=== PATIENT | female | born 1970 | race Caucasian/White ===

== ENCOUNTER → 2017-05-17 | Outpatient (CLI) | payer OTHER ==
[2017-05-17 13:20] LABS: BASO % 0.2 %; BASO ABS # 0.02 K/uL (0-0.2); COMPLETE YES; EOS % 3.3 %; HEMATOCRIT 40.5 % (37-47); IG% 0.2 %; LYMPH % 37.8 %; MEAN CELL VOLUME 83.5 fL (80-100); MEAN CORPUSCULAR HEMOGLOBIN 29.1 pg (25-34); MEAN CORPUSCULAR HGB CONC 34.8 g/dl (32-36); MEAN PLATELET VOLUME 11.9 fL (7.4-10.4); MONO % 4.4 %; NEUT % 54.1 %; PLATELET COUNT 312 K/uL (130-400); RED BLOOD COUNT 4.85 M/uL (4.2-5.4); WHITE BLOOD COUNT 8.99 K/uL (4.8-10.8)
[2017-05-17 13:55] LABS: ALB/GLOB RATIO 0.9 (0.9-2); ALKALINE PHOSPHATASE 117 U/L (45-117); ALT/SGPT 45 U/L (12-78); AST/SGOT 27 U/L (15-37); BLOOD UREA NITROGEN 10 mg/dl (7-18); BUN/CREATININE RATIO 13.3 (10-20); CALCIUM 8.1 mg/dl (8.5-10.1); CARBON DIOXIDE 24 mmol/L (21-32); CHLORIDE 107 mmol/L (98-107); CREATININE 0.72 mg/dl (0.60-1.20); GLUCOSE 190 mg/dl (70-99); HDL CHOLESTEROL 36 mg/dl; POTASSIUM 3.9 mmol/L (3.5-5.1); SODIUM 139 mmol/L (136-145)
[2017-05-17 14:06] LABS: CHOLESTEROL 141 mg/dl (0-200); CHOLESTEROL/HDL RATIO 3.9; LDL CHOLESTEROL CALCULATED 88 mg/dl; TRIGLYCERIDES 86 mg/dl (0-150); VERY LOW DENSITY LIPOPROT CALC 17 mg/dl
== END | disposition home or self-care (01) ==
LOC: C.LAB1850 11:06
PROVIDERS: ATTEND Physician Assistant
DX: I10 Essential (primary) hypertension (principal)

== ENCOUNTER → 2017-05-23 | Outpatient (CLI) | payer OTHER | END | disposition home or self-care (01) | LOC: C.PAPS 17:50 | PROVIDERS: ATTEND Physician Assistant | DX: Z01.411 Encounter for gynecological examination (general) (routine) with abnormal findings (principal) ==

== ENCOUNTER → 2017-05-23 | Outpatient (CLI) | payer OTHER | END | disposition home or self-care (01) | LOC: C.LABSPEC 17:25 | PROVIDERS: ATTEND Physician Assistant | DX: L29.8 Other pruritus (principal) ==

== ENCOUNTER → 2017-05-24 | Outpatient (CLI) | payer OTHER ==
[2017-05-25 06:47] LABS: ESTIMATED AVERAGE GLUCOSE 203 mg/dl; HA1C FLAG Normal (Normal)
== END | disposition home or self-care (01) ==
LOC: C.LAB1850 14:45
PROVIDERS: ATTEND Physician Assistant
DX: R73.9 Hyperglycemia, unspecified (principal)

== ENCOUNTER → 2017-05-29 | Outpatient (CLI) | payer OTHER | END | disposition home or self-care (01) | LOC: C.LAB1850 08:37 | PROVIDERS: ATTEND Obstetrics & Gynecology | DX: N83.9 Noninflammatory disorder of ovary, fallopian tube and broad ligament, unspecified (principal) ==

== ENCOUNTER 2017-08-09 08:55 | Day surgery (SDC) | payer OTHER ==
[2017-07-24 15:05] VITALS: Ht 172.7 cm; Wt 119.6 kg
--- NOTE | 2017-07-24 15:33 | PAT Medication Instructions ---
Service Date Jul 24, 2017. Current Home Medication List Escitalopram (Lexapro), 10 MG PO QAM Hydrochlorothiazide (Hydrochlorothiazide), 1 TAB PO QAM Liraglutide (Victoza), 1.2 MG SQ QPM Valsartan (Diovan), 160 MG PO QAM Medication Instructions For Your Scheduled Surgery - Hold the following medications the morning of surgery: Valsartan (Diovan), 160 MG PO QAM Hydrochlorothiazide (Hydrochlorothiazide), 1 TAB PO QAM - Take the following medications the morning of surgery with a sip of water: Escitalopram (Lexapro), 10 MG PO QAM - Take the following medications as scheduled the night before surgery: Liraglutide (Victoza), 1.2 MG SQ QPM If you have any questions please call us at [phone] or [phone] or [phone]
[2017-07-24 16:11] LABS: BASO % 0.4 %; BASO ABS # 0.05 K/uL (0-0.2); EOS % 2.1 %; EOS ABS # 0.24 K/uL (0-0.5); HEMATOCRIT 40.2 % (37-47); IG# 0.02 K/uL (0.00-0.02); LYMPH % 40.6 %; LYMPH ABS # 4.66 K/uL (1.2-3.4); MEAN CELL VOLUME 84.5 fL (80-100); MEAN CORPUSCULAR HEMOGLOBIN 29.4 pg (25-34); MEAN CORPUSCULAR HGB CONC 34.8 g/dl (32-36); MONO % 4.3 %; MONO ABS # 0.49 K/uL (0.11-0.59); NEUT % 52.4 %; NEUT ABS # 6.01 K/uL (1.4-6.5); PLATELET COUNT 368 K/uL (130-400); RED CELL DISTRIBUTION WIDTH CV 13.5 % (11.5-14.5); RED CELL DISTRIBUTION WIDTH SD 41.5 fL (36.4-46.3); WHITE BLOOD COUNT 11.47 K/uL (4.8-10.8)
[2017-07-24 16:21] LABS: CALCIUM 8.7 mg/dl (8.5-10.1); CREATININE 0.81 mg/dl (0.60-1.20); POTASSIUM 3.9 mmol/L (3.5-5.1)
[~2017-08-09] VITALS: Ht 172.7 cm; Wt 119.6 kg
[~2017-08-09 08:55] MED LIST: DVN/160 PO; ESCI10TA17 PO; HYDR12.55 PO; LACTATED RINGER'S 1000ML 1,000 ML IV SCH; LIRA18IN SQ
[2017-08-09 09:31] VITALS: BP 144/97; PULSE 82; TEMP 36.8; O2SAT 96
[2017-08-09] MEDS ORDERED: LIDOCAINE HCL 2% 2 ML VIAL (20MG/ML) ONE (09:47)
[2017-08-09] MEDS ORDERED: GLYCOPYRROLATE INJ 0.2 MG/ML VIAL ONE ×2 (09:47→12:16)
[2017-08-09] MEDS ORDERED: PROPOFOL IV EMULSION 10 MG/ML 20 ML VIAL IV ONE (09:47)
[2017-08-09] MEDS ORDERED: DEXAMETHASONE SOD INJ 4 MG/ML VIAL ONE (09:47)
[2017-08-09] MEDS ORDERED: ONDANSETRON INJ 2 MG/ML 2 ML VIAL ONE ×2 (09:47→12:27)
[2017-08-09] MEDS ORDERED: NEOSTIGMINE METHYLSULFATE 5 MG/5 ML SYR ONE (09:47)
[2017-08-09] MEDS ORDERED: FENTANYL CITRATE INJ 50 MCG/1 ML 2 ML VIAL ONE ×2 (09:48→11:48)
[2017-08-09] MEDS ORDERED: MIDAZOLAM HCL 1 MG/ML 2ML VIAL ONE (09:48)
[2017-08-09 09:54] LABS: BASO % 0.5 %; BASO ABS # 0.04 K/uL (0-0.2); EOS ABS # 0.26 K/uL (0-0.5); HEMOGLOBIN 13.8 g/dL (12.0-16.0); IG# 0.01 K/uL (0.00-0.02); LYMPH % 37.4 %; LYMPH ABS # 3.27 K/uL (1.2-3.4); MEAN CELL VOLUME 84.2 fL (80-100); MEAN CORPUSCULAR HEMOGLOBIN 29.1 pg (25-34); MEAN PLATELET VOLUME 11.6 fL (7.4-10.4); MONO % 5.4 %; MONO ABS # 0.47 K/uL (0.11-0.59); NEUT % 53.6 %; NEUT ABS # 4.69 K/uL (1.4-6.5); PLATELET COUNT 320 K/uL (130-400); RED CELL DISTRIBUTION WIDTH CV 13.2 % (11.5-14.5); RED CELL DISTRIBUTION WIDTH SD 40.4 fL (36.4-46.3); WHITE BLOOD COUNT 8.74 K/uL (4.8-10.8)
[2017-08-09 09:55] LABS: MEAN CORPUSCULAR HGB CONC 34.5 g/dl (32-36)
[2017-08-09] MEDS ORDERED: LARYING-O-JET KIT (LTA) ONE (09:56)
[2017-08-09] MEDS ORDERED: EpHEDrine SULFATE INJ 50 MG/ML AMP IV PRN (10:00)
[2017-08-09] MEDS ORDERED: LABETALOL HCL IV 5 MG/ML 20ML IV PRN (10:00)
[2017-08-09] MEDS ORDERED: NALOXONE HCL 0.4 MG/1 ML VIAL/CARP IV PRN (10:00)
[2017-08-09] MEDS ORDERED: FLUMAZENIL 0.1 MG/1 ML 10 ML VIAL IV PRN (10:00)
[2017-08-09] MEDS ORDERED: HYDROmorphone INJ 1 MG/ML SYR IV PRN (10:00)
[2017-08-09] MEDS ORDERED: ATROPINE SULFATE 0.1 MG/ML 5ML SYR IV PRN (10:00)
[2017-08-09] MEDS ORDERED: ONDANSETRON INJ 2 MG/ML 2 ML VIAL IV PRN ×2 (10:00→13:00)
[2017-08-09] MEDS ORDERED: PROMETHAZINE HCL INJ 12.5 MG in SODIUM CHLORIDE 0.9% 50ML 50 ML IV PRN (10:00)
[2017-08-09] MEDS ORDERED: BUPIVACAINE 0.5 % 5 MG/1 ML MPF 30ML VIAL ONE (10:24)
--- NOTE | 2017-08-09 10:27 | History & Physical Bridge Note ---
H&P Re-Evaluation Bridge Note: I have examined the patient, reviewed the History & Physical and in the interval since the performance of the History & Physical I have noted the following changes of clinical significance: No changes noted
[2017-08-09] MEDS ORDERED: LABETALOL HCL IV 5 MG/ML 20ML IV ONE (12:09)
[2017-08-09] MEDS ORDERED: ROCURONIUM BROMIDE 10 MG/ML 5 ML VIAL IV ONE ×2 (12:27→12:35)
[2017-08-09] MEDS ORDERED: KETOROLAC TROMETHAMINE 30 MG/ML VIAL ONE (12:30)
[2017-08-09] MEDS ORDERED: SODIUM CHLORIDE 0.9% 1000ML 1,000 ML IV SCH (12:46)
--- NOTE | 2017-08-09 12:46 | [facility] Post Operative Brief Note ---
Immediate Operative Summary Operative Date Aug 09, 2017. Pre-Operative Diagnosis Left Ovarian Mass Post-Operative Diagnosis Left Ovarian Mass Procedure(s) Performed Laparoscopic Left Salpingo-Oophorectomy with use of Fang Surgeon Dr. Marinelli Farm Contractor Buyer Surgeon(s) NONE Estimated Blood Loss 10 ml Findings Consistent with Post-Op Diagnosis Left ovarian cyst. Fluids (cc crystalloids) 1500cc Specimens Permanent Specimen A: Left fallopian tube and left ovary Drains None soni removed at end of case, 200ml clear yellow Anesthesia Type General Complication(s) none Disposition Accompanied Pt To Recover: no
[2017-08-09] MEDS ORDERED: OXYC-57 PO (12:57)
[2017-08-09] MEDS ORDERED: IBUPROFEN 600 MG TAB PO PRN (13:00)
[2017-08-09] MEDS ORDERED: OXYCODONE/ACETAMINOPHEN 5-325 TAB PO PRN ×2 (13:00)
[2017-08-09] MEDS ORDERED: PROMETHAZINE HCL INJ 25 MG in SODIUM CHLORIDE 0.9% 50ML 50 ML IV PRN (13:00)
--- NOTE | 2017-08-09 13:02 | Discharge Instructions ---
Discharge Instructions Date of Service Aug 09, 2017. Visit Reason for Visit: Left Ovarian Mass Discharge Discharge Diagnosis / Problem: Left ovarian cyst Discharge Goals Goal(s): Diagnostic testing, Therapeutic intervention Activity Recommendations Activity Limitations: per Instructions/Follow-up section Anesthesia . Post Anesthesia Instructions: If you have had General Anesthesia or IV Sedation: * Do not drive today. * Resume driving when surgeon permits. * Do not make important decisions or sign legal documents today. * Call surgeon for: 1. Temperature elevations greater than 101 degrees F. 2. Uncontrollable pain. 3. Excessive bleeding. 4. Persistent nausea and vomiting. 5. Medication intolerance (nausea, vomiting or rash). * For nausea and vomiting use only clear liquids such as: tea, soda, bouillon until nausea subsides, then gradually increase diet as tolerated. * If you have any concerns or questions, call your surgeon's office. If physician is unavailable and it is an emergency, call 911 or go to the nearest emergency room. . Instructions / Follow-Up Instructions / Follow-Up POST OPERATIVE: BOWEL FUNCTION/MEDICATIONS: 1. Constipation pain and discomfort are the most common complaints 5-7 days after surgery. Points 2-6 address the things that can help. 2. Chewing gum can help stimulate the gut and help improve digestion and motility. 3. Milk of Magnesia 1-2 times per day until return of bowel function. 4. Colace is a stool softener that helps. Taking this 2-3 times per day until bowel function returns to normal is highly recommended. 5. Dulcolax is a laxative that may be used if several days have passed without a bowel movement. Alternatively Miralax may be used daily instead. 6. Drink plenty of fluids as this will also reduce constipation. 7. Narcotic pain medications will be prescribed by your physician. They are safe to use and we encourage you to use them. If you are not allergic, ibuprofen will also be prescribed. Many patients will be able to transition off of the narcotic medications to ibuprofen by postoperative day 3. ACTIVITY RECOMMENDATIONS: 1. Get plenty of rest and listen to your body. If you are tired, take a nap. 2. You may shower, but do not take a tub bath until you see your doctor at the 2 week post operative visit. 3. NO intercourse and nothing in the vagina until you are examined by your doctor at the 2 week visit. 4. The main physical activity in the first week should be walking. By the second week you can slowly increase activity. There are no limits on walking up and down stairs. 5. Do not lift more than 5-10 lbs for 4 weeks. Remember the "one-handed rule", i.e. if you can lift something with only one hand it's likely okay. 6. Minimize vmware architect like vacuuming and exercising for 4 weeks. "Overdoing it" can lead to incisions not healing, pain and vaginal bleeding , so again, listen to your body. 7. Driving can be resumed when you feel able. Do not drive within 24 hours of taking a narcotic medication. EXPECTATIONS: 1. If you experience heavy vaginal bleeding, call the office number day or night [phone]. 2. Bladder discomfort is common after surgery from the catheter. This usually resolves in 1-2 weeks. 3. By the end of the 1st or 2nd week you should be feeling much better. It may take up to 6 weeks for your energy levels to return to normal. 4. Narcotic medications have side effects such as: dizziness, headache, nausea and/or vomiting. If you suspect your pain medication is causing problems, call our office and we may be able to prescribe an alternate medication. 5. The skin incisions are often covered with a liquid bandage. This will gradually peel off over time. CALL THE OFFICE IF YOU HAVE ANY OF THE FOLLOWIN. Temperature of 101 degrees or higher. 2. Severe abdominal or pelvic pain not relieved by pain medication. 3. Persistent nausea or vomiting. 4. Increased pain with urination or difficulty urinating. 5. Bright red bleeding that soaks more than 1 pad per hour. CONTACT PHONE NUMBERS: Main Office: [phone] Surgical Nurse: [phone] extension [phone] Avoid all tobacco products. If you need help to stop smoking, call [place] FREE QUITLINE at . This is a free call. Diet Recommendations Recommended Home Diet: resume previous diet Procedures Procedures Performed: Laparoscopic Left Salpingo-Oophorectomy with use of DaVinci Pending Studies Studies pending at discharge: yes List of pending studies: pathology Medical Emergencies . Who to Call and When: Medical Emergencies: If at any time you feel your situation is an emergency, please call 911 immediately. . Non-Emergent Contact Non-Emergency issues call your: Primary Care Provider, Math [employer] Science Division Chair . . "Provider Documentation" section prepared by Charlene Marinelli. . [place] Drug Monitoring Program Search Results: patient reviewed within database, no issues identified
--- NOTE | 2017-08-09 13:31 | Anesthesiology Progress Note ---
Anesthesia Post Op Note Date & Time Aug 09, 2017 at 13:30 Vital Signs Pain Intensity: 0 Vital Signs Past 12 Hours Date Time Temp Pulse Resp B/P (MAP) Pulse Ox O2 Delivery O2 Flow Rate FiO2 08/09/17 13:25 69 18 118/69 94 Nasal Cannula 2 08/09/17 13:15 75 18 133/80 97 Oxymask 15 08/09/17 13:05 76 18 137/89 95 Oxymask 15 08/09/17 12:58 36.6 82 16 151/91 95 Oxymask 15 08/09/17 09:31 36.8 82 20 144/97 (113) 96 Room Air Notes Mental Status: alert / awake / arousable, participated in evaluation Pt Amnestic to Procedure: Yes Nausea / Vomiting: adequately controlled Pain: adequately controlled Airway Patency, RR, SpO2: stable & adequate BP & HR: stable & adequate Hydration State: stable & adequate Anesthetic Complications: no major complications apparent
[2017-08-09 13:42] VITALS: BP 122/66; PULSE 68; TEMP 36.6; O2SAT 98
[2017-08-09 14:15] VITALS: BP 115/65; PULSE 66; O2SAT 94
[2017-08-09 14:50] VITALS: BP 115/69; PULSE 73; TEMP 36.6; O2SAT 92
[2017-08-09 15:20] VITALS: BP 119/65; PULSE 82; TEMP 36.8; O2SAT 93
[2017-08-09 15:50] VITALS: BP 114/65; PULSE 80; O2SAT 94
--- NOTE | 2017-08-09 22:18 | OPERATIVE REPORT ---
DATE OF OPERATION: 08/09/2017 PREOPERATIVE DIAGNOSIS: Left ovarian mass. POSTOPERATIVE DIAGNOSIS: Same. PROCEDURES PERFORMED: Laparoscopic left salpingo-oophorectomy with use of da Logan. SURGEON: Charlene Marinelli DO. ELECTRIC CAR OPERATOR: None. ESTIMATED BLOOD LOSS: 10 mL. FINDINGS: Consistent with postoperative diagnosis of left ovarian cyst. FLUIDS: 1500 mL. SPECIMENS: Left fallopian tube and ovary. DRAINS: Luther removed at conclusion of case, 200 mL clear yellow. ANESTHESIA: General. COMPLICATIONS: None. DISPOSITION: Stable and good to recovery room. INDICATIONS FOR PROCEDURE: The patient is a 47-year-old G0 who had undergone pelvic ultrasound for obesity and inability to palpate ovaries on exam by PA in our office, she was found to have a left ovarian cyst that appeared on ultrasound to be a dermoid 4.8 x 3.6 x 4.1 cm. There was also a small uterine fibroid noted. She elected to undergo surgical removal of the dermoid cyst. DESCRIPTION OF PROCEDURE: The patient was seen in the preoperative holding area where risks, benefits, alternatives to surgery were reviewed. She elected to proceed with the case. She had previously signed informed consent in the office under no duress. She was then taken to the operating room where general anesthesia was administered. A timeout was confirmed. She was prepared and draped in the usual sterile fashion with feet in Yellofin stirrups in the dorsal lithotomy position. A weighted speculum was placed in the vagina. The cervix was visualized and its anterior lip was grasped with a single tooth tenaculum and an acorn manipulator was placed. The weighted speculum was removed. A Luther catheter was placed in the bladder. Gloves were changed and attention was then turned to the abdomen where a supraumbilical incision was made with a scalpel and using the open Henna technique, the supraumbilical trocar was placed. The camera was inserted and intraabdominal placement was noted. The abdomen was then insufflated with 15 mmHg of CO2 gas. The patient was placed in steep Trendelenburg position and bilateral instrument port trocar sites on the lateral sides were placed under direct visualization. After the scope was inserted, it was noted that the ovary and IP ligament were short and very close to the left peritoneal wall and therefore the decision was made to use the da Logan robot to achieve better precision with dissection from the peritoneal sidewall. The robot was docked. The left fallopian tube was transected from its mesosalpinx with hot scissors. The left ureter was identified, visualized and away from the field. The left IP ligament was coagulated and transected. The left uteroovarian ligament was coagulated and transected. The ovary was freed from its serosal attachments to the mesosalpinx. Next, the robot was undocked. A 5 mm scope was placed in the lateral port and an EndoCatch bag was placed into the abdomen through the supraumbilical incision site. The fallopian tube and ovary were both placed into the EndoCatch bag. This was brought up to the surface and the incision was extended to remove the bag from the abdominal cavity. The fascial incision was reapproximated with 0 Vicryl in a running stitch. The subcuticular tissue was reapproximated with 0 Vicryl. All incisions were reapproximated using 4-0 Vicryl in a subcuticular stitch. Dermabond was applied. The patient tolerated the procedure well, was taken to the recovery area in stable and good condition. I attest to the content of the Intraoperative Record and any orders documented therein. Any exception s are noted below.
== END 2017-08-09 16:22 | disposition home or self-care (01) ==
LOC: C.ACU 08:55
PROVIDERS: ATTEND Obstetrics & Gynecology
DX: D27.1 Benign neoplasm of left ovary (principal); I10 Essential (primary) hypertension; E11.9 Type 2 diabetes mellitus without complications; K21.9 Gastro-esophageal reflux disease without esophagitis; R59.1 Generalized enlarged lymph nodes; E66.9 Obesity, unspecified; Z68.41 Body mass index [BMI] 40.0-44.9, adult; Z81.8 Family history of other mental and behavioral disorders; Z80.6 Family history of leukemia
CPT/HCPCS: 58661; S2900

== ENCOUNTER → 2017-10-07 | Outpatient (CLI) | payer OTHER ==
[~2017-10-07] MED LIST changes: -LACTATED RINGER'S 1000ML 1,000 ML IV SCH
[2017-10-07 18:22] LABS: ALBUMIN 3.6 gm/dl (3.4-5.0); ALT/SGPT 46 U/L (12-78); BLOOD UREA NITROGEN 11 mg/dl (7-18); CALCIUM 8.4 mg/dl (8.5-10.1); CARBON DIOXIDE 30 mmol/L (21-32); CREATININE 0.77 mg/dl (0.60-1.20); GLUCOSE 119 mg/dl (70-99); POTASSIUM 3.6 mmol/L (3.5-5.1); SODIUM 139 mmol/L (136-145)
[2017-10-07 18:24] LABS: ALKALINE PHOSPHATASE 94 U/L (45-117); AST/SGOT 33 U/L (15-37); TOTAL PROTEIN 7.4 gm/dl (6.4-8.2)
[2017-10-08 07:08] LABS: HEMOGLOBIN A1C 6.5 % (4.5-5.6)
== END | disposition home or self-care (01) ==
LOC: C.LAB1850 17:11
PROVIDERS: ATTEND Internal Medicine
DX: R73.9 Hyperglycemia, unspecified (principal); K20.0 Eosinophilic esophagitis; F41.9 Anxiety disorder, unspecified; I10 Essential (primary) hypertension

== ENCOUNTER → 2017-11-07 | Day surgery (SDC) | payer OTHER ==
[2017-11-04 10:48] VITALS: BMI 40.0
[~2017-11-07] VITALS: Ht 172.7 cm; Wt 120.5 kg
[~2017-11-07] MED LIST changes: +LIDOCAINE HCL 2% 2 ML VIAL (20MG/ML) ONE; +OYST500T47 PO; +PROPOFOL IV EMULSION 10 MG/ML 20 ML VIAL ONE; +SODIUM CHLORIDE 0.9% 500ML 500 ML IV ONE
[2017-11-07 14:48] VITALS: Ht 172.7 cm; Wt 120.5 kg
--- NOTE | 2017-11-07 15:40 | Endo History and Physical ---
History & Physical Date of Service: November 07, 2017. Chief Complaint: REFLUX DYSPHAGIA Referring Physician: DR. TRISTAN History of Present Illness 47 yo CF who presents for EGD secondary to GERD and dysphagia. Past Surgical History Hx Cardiac Surgery: No Hx Internal Defibrillator: No Hx Pacemaker: No Hx Abdominal Surgery: Yes (LEFT OOPHERECTOMY(CYST), COLD CONIZATION BIOPSY) Hx of Implantable Prosthesis: No Hx Post-Op Nausea and Vomiting: No Hx Cancer Surgery: No Hx Thoracic Surgery: No Hx Orthopedic: No Hx Urinary Tract Surgery: No Family History None Social History Smoking Status: Never Smoker Hx Substance Use: No Hx Alcohol Use: Yes (OCCASIONALLY) Allergies Coded Allergies: Nut Tree (Verified Allergy, Unknown, THROAT SWELLING, 11/07/17) Penicillins (Verified Allergy, Unknown, THROAT SWELLING, 11/07/17) Current Medications Reported Home Medications Medications Dose Route/Sig Max Daily Dose Days Date Category Calcium (Oyster Shell) 500 Mg Tab Unknown Dose PO BID 11/04/17 Reported Victoza (Liraglutide) 18 Mg/3 Ml Inj 1.2 Mg SQ QPM 07/24/17 Reported Lexapro (Escitalopram Oxalate) 10 Mg Tab 10 Mg PO QAM 07/24/17 Reported Hydrochlorothiazide 12.5 Mg Tab 1 Tab PO QAM 07/24/17 Reported Diovan (Valsartan) 160 Mg Tab 160 Mg PO QAM 07/24/17 Reported Vital Signs Weight (Kilograms): 120.45 Height (Feet): 5 Height (Inches): 8 Date Time Temp Pulse Resp B/P (MAP) Pulse Ox O2 Delivery O2 Flow Rate FiO2 11/07/17 15:03 37.1 78 20 145/80 (101) 94 Room Air Physical Exam General Appearance: WD/WN, no apparent distress Respiratory/Chest: Auscultation: breath sounds normal Cardiovascular: Heart Auscultation: RRR Abdomen: Bowel Sounds: normal Inspection & Palpation: soft, non-distended, no tenderness, guarding & rebound Assessment and Plan Assessment: 47 yo CF who presents for EGD secondary to GERD and dysphagia. Plan: Proceed with EGD.
--- NOTE | 2017-11-07 16:30 | GI REPORT ---
Patient Name: Kaylynn Juarez Procedure Date: 11/07/2017 4:00 PM Date of : 1970 Admit Type: Outpatient Age: 47 Gender: Female Attending MD: Cedric Marcano DO Procedure: Upper GI endoscopy Providers: Cedric Marcano DO Referring MD: Adriano Napier Indications: Dysphagia Medicines: Monitored Anesthesia Care Complications: No immediate complications. Estimated Blood Loss: Estimated blood loss: none. Procedure: Pre-Anesthesia Assessment: - Prior to the procedure, a History and Physical was performed, and patient medications and allergies were reviewed. The patient's tolerance of previous anesthesia was also reviewed. The risks and benefits of the procedure and the sedation options and risks were discussed with the patient. All questions were answered, and informed consent was obtained. Prior Anticoagulants: The patient has taken no previous anticoagulant or antiplatelet agents. ASA Grade Assessment: II - A patient with mild systemic disease. After reviewing the risks and benefits, the patient was deemed in satisfactory condition to undergo the procedure. After obtaining informed consent, the endoscope was passed under direct vision. Throughout the procedure, the patient's blood pressure, pulse, and oxygen saturations were monitored continuously. The scope was introduced through the mouth, and advanced to the second part of duodenum. The upper GI endoscopy was performed with difficulty due to narrowing. The patient tolerated the procedure well. Findings: Mucosal changes were found in the entire esophagus. Esophageal findings were graded using the Eosinophilic Esophagitis Endoscopic Reference Score (EoE-EREFS) as: Edema Grade 1 Present (decreased clarity or absence of vascular markings), Rings Grade 3 Severe (distinct rings that do not permit passage of diagnostic 8-10 mm endoscope), Exudates Grade 1 Mild (scattered white lesions involving less than 10 percent of the esophageal surface area), Furrows Grade 1 Present (vertical lines with or without visible depth) and Stricture present (9 mm luminal diameter). Biopsies were taken with a cold forceps for histology. A TTS dilator was passed through the scope. Dilation with a 10-11-12 mm balloon dilator was performed to 12 mm. The dilation site was examined and showed moderate improvement in luminal narrowing. The stomach was normal. The examined duodenum was normal. Impression: - Esophageal mucosal changes consistent with eosinophilic esophagitis. Biopsied. Dilated. - Normal stomach. - Normal examined duodenum. Recommendation: - Resume previous diet. - Use Protonix (pantoprazole) 40 mg PO BID. - Repeat upper endoscopy in 3 weeks for retreatment. - Return to GI office as previously scheduled. Cedric Marcano, DO 11/07/2017 4:29:22 PM This report has been signed electronically. Note Initiated On: 11/07/2017 4:00 PM Number of Addenda: 0 I attest to the content of the Intraoperative Record and orders documented therein, exceptions below {[id number]}
--- NOTE | 2017-11-07 16:39 | Discharge Instructions ---
Endoscopy Patient Instructions Date / Procedure(s) Performed November 07, 2017. EGD Allergy Information Coded Allergies: Nut Tree (Verified Allergy, Unknown, THROAT SWELLING, 11/07/17) Penicillins (Verified Allergy, Unknown, THROAT SWELLING, 11/07/17) Discharge Date / Findings November 07, 2017. Eosinophilic esophagitis s/p dilation and biopsies Medication Instructions 1) Start Protonix 40mg by mouth twice daily 1/2 hour prior to breakfast and dinner. 2) OK to resume all medications today as prescribed Reported Home Medications Medications Dose Route/Sig Max Daily Dose Days Date Category Calcium (Oyster Shell) 500 Mg Tab Unknown Dose PO BID 11/04/17 Reported Victoza (Liraglutide) 18 Mg/3 Ml Inj 1.2 Mg SQ QPM 07/24/17 Reported Lexapro (Escitalopram Oxalate) 10 Mg Tab 10 Mg PO QAM 07/24/17 Reported Hydrochlorothiazide 12.5 Mg Tab 1 Tab PO QAM 07/24/17 Reported Diovan (Valsartan) 160 Mg Tab 160 Mg PO QAM 07/24/17 Reported Provider Instructions Activity Restrictions - No exercising or heavy lifting for 24 hours. - Do not drink alcohol the day of the procedure. - Do not drive a car or operate machinery until the day after the procedure. - Do not make any important decisions or sign important papers in 24 hours after the procedure. Following Day: - Return to full activity which may include returning to work/school. Diet Start your diet with liquids and light foods (jello, soup, juice, toast). Then eat your usual diet if not nauseated. Treatment For Common After Affects For mild abdominal pain, bloating, or excessive gas: - Rest - Eat lightly - Lie on right side Repeat EGD in 3 weeks. Follow-Up Information Follow-up with DR. TRISTAN as scheduled Anesthesia Information What You Should Know You have had a procedure that required some medicine to reduce anxiety and discomfort. This treatment is called moderate sedation. After receiving the treatment, you may be sleepy, but you will be able to breathe on your own. The effects of the treatment may last for several hours. Follow these instructions along with Activity/Diet recommendations noted above: * Do NOT do anything where dizziness or clumsiness would be dangerous. * Rest quietly at home today, then you can be up and about tomorrow. * Have a responsible person stay with you the rest of today. * You may have had an I.V. today. If so, you may take the dressing off later today. Recommendations Call your doctor if: * Trouble breathing * Continuous vomiting for more than 24 hours * Temperature above 101 degrees * Severe abdominal pain or bloating * Pain not relieved by pain medicine ordered * There is increased drainage or redness from any incision * A large amount of rectal bleeding greater than 2-3 tablespoons. (If you had a polyp/s removed or have hemorrhoids, a small amount of blood - from the rectum is to be expected.) * You have any unanswered questions or concerns. IN THE EVENT OF A SERIOUS EMERGENCY, GO TO THE NEAREST EMERGENCY ROOM Your discharge instructions were prepared by provider Cedric Marcano. Patient Instructions Signature Page Kaylynn Juarez Patient (or Guardian) Signature/Date: I have read and understand the instructions given to me by my caregivers. Caregiver/RN/Doctor Signature/Date: The above-named patient and/or guardian has received patient instructions on this date. + Original Patient Signature Page (only) stays with chart. Please make copy for patient.
--- NOTE | 2017-11-07 17:01 | Anesthesiology Progress Note ---
Anesthesia Post Op Note Date & Time November 07, 2017 at 17:00 Vital Signs Vital Signs Past 12 Hours Date Time Temp Pulse Resp B/P (MAP) Pulse Ox O2 Delivery O2 Flow Rate FiO2 11/07/17 16:50 72 20 140/89 (106) 97 Room Air 11/07/17 16:35 85 18 137/83 (101) 94 Room Air 11/07/17 15:03 37.1 78 20 145/80 (101) 94 Room Air Notes Mental Status: alert / awake / arousable, participated in evaluation Nausea / Vomiting: adequately controlled Pain: adequately controlled Airway Patency, RR, SpO2: stable & adequate BP & HR: stable & adequate Hydration State: stable & adequate Anesthetic Complications: no major complications apparent
[2017-11-07 17:05] VITALS: BP 146/94; PULSE 76; O2SAT 98
== END | disposition home or self-care (01) ==
LOC: C.GI 14:39
PROVIDERS: ATTEND Internal Medicine
DX: K20.9 Esophagitis, unspecified (principal); Z88.0 Allergy status to penicillin; E66.9 Obesity, unspecified; Z68.41 Body mass index [BMI] 40.0-44.9, adult; Z91.018 Allergy to other foods; Z79.899 Other long term (current) drug therapy; F32.9 Major depressive disorder, single episode, unspecified; F41.9 Anxiety disorder, unspecified

== ENCOUNTER → 2017-11-13 | Outpatient (CLI) | payer OTHER ==
[~2017-11-13] MED LIST changes: -LIDOCAINE HCL 2% 2 ML VIAL (20MG/ML) ONE; -PROPOFOL IV EMULSION 10 MG/ML 20 ML VIAL ONE; -SODIUM CHLORIDE 0.9% 500ML 500 ML IV ONE
--- NOTE | 2017-11-13 15:06 | MAMMOGRAPHY REPORT ---
BILATERAL DIGITAL SCREENING MAMMOGRAM TOMOSYNTHESIS WITH CAD: 11/13/2017 CLINICAL HISTORY: Routine screening. Patient has no complaints. TECHNIQUE: Breast tomosynthesis in addition to standard 2D mammography was performed. Current study was also evaluated with a Computer Aided Detection (CAD) system. COMPARISON: No prior exams were available for comparison. BREAST COMPOSITION: There are scattered areas of fibroglandular density in both breasts. FINDINGS: No suspicious mass, architectural distortion or cluster of microcalcifications is seen. IMPRESSION: ACR BI-RADS CATEGORY 1: NEGATIVE There is no mammographic evidence of malignancy. A 1 year screening mammogram is recommended. The pa tient will receive written notification of the results. Approximately 10% of breast cancers are not detected with mammography. A negative mammographic report should not delay biopsy if a clinically suggestive mass is present. Luz kay/kateryna:11/13/2017 12:48:35 Planning Associate: Nancy LINDSEY(Deborah)(Linda), [facility] letter sent: Normal 1/2 BI-RADS Code: ACR BI-RADS Category 1: Negative
== END | disposition home or self-care (01) ==
LOC: C.MAMM 12:23
PROVIDERS: ATTEND Internal Medicine
DX: Z12.31 Encounter for screening mammogram for malignant neoplasm of breast (principal)

== ENCOUNTER → 2017-11-28 | Day surgery (SDC) | payer OTHER ==
[2017-11-20 12:47] VITALS: BMI 40.0
[~2017-11-28] VITALS: Ht 172.7 cm; Wt 120.5 kg
[~2017-11-28] MED LIST changes: +LIDOCAINE HCL 2% 2 ML VIAL (20MG/ML) ONE; +PANT40TA PO; +PROPOFOL IV EMULSION 10 MG/ML 20 ML VIAL ONE; +SODIUM CHLORIDE 0.9% 500ML 500 ML IV ONE
[2017-11-28 12:16] VITALS: Ht 172.7 cm; Wt 120.5 kg
--- NOTE | 2017-11-28 12:36 | Endo History and Physical ---
History & Physical Date of Service: November 28, 2017. Chief Complaint: EOSINOPHILIC ESOPHAGITIS Referring Physician: DR. TRISTAN History of Present Illness 47 yo CF who presents for EGD secondary to Eosinophilic esophagitis. Past Surgical History Hx Cardiac Surgery: No Hx Internal Defibrillator: No Hx Pacemaker: No Hx Abdominal Surgery: Yes (LEFT OOPHERECTOMY(CYST)) Hx Post-Op Nausea and Vomiting: No Hx Cancer Surgery: No Hx Thoracic Surgery: No Hx Orthopedic: No Hx Urinary Tract Surgery: No Family History None Social History Smoking Status: Never Smoker Hx Substance Use: No Hx Alcohol Use: Yes (OCCASIONALLY) Allergies Coded Allergies: Nut Tree (Verified Allergy, Unknown, THROAT SWELLING, 11/20/17) Penicillins (Verified Allergy, Unknown, THROAT SWELLING, 11/20/17) Current Medications Reported Home Medications Medications Dose Route/Sig Max Daily Dose Days Date Category Protonix (Pantoprazole Sodium) 40 Mg Tab 40 Mg PO BID 11/20/17 Reported Calcium (Oyster Shell) 500 Mg Tab Unknown Dose PO BID 11/04/17 Reported Victoza (Liraglutide) 18 Mg/3 Ml Inj 1.2 Mg SQ QPM 07/24/17 Reported Lexapro (Escitalopram Oxalate) 10 Mg Tab 10 Mg PO QAM 07/24/17 Reported Hydrochlorothiazide 12.5 Mg Tab 1 Tab PO QAM 07/24/17 Reported Diovan (Valsartan) 160 Mg Tab 160 Mg PO QAM 07/24/17 Reported Vital Signs Weight (Kilograms): 120.45 Height (Feet): 5 Height (Inches): 8 Date Time Temp Pulse Resp B/P (MAP) Pulse Ox O2 Delivery O2 Flow Rate FiO2 11/28/17 12:15 36.6 73 20 152/114 (127) 97 Room Air Physical Exam General Appearance: WD/WN, no apparent distress Respiratory/Chest: Auscultation: breath sounds normal Cardiovascular: Heart Auscultation: RRR Abdomen: Bowel Sounds: normal Inspection & Palpation: soft, non-distended, no tenderness, guarding & rebound Assessment and Plan Assessment: 47 yo CF who presents for EGD secondary to Eosinophilic esophagitis. Plan: Proceed with EGD.
--- NOTE | 2017-11-28 13:08 | Discharge Instructions ---
Endoscopy Patient Instructions Date / Procedure(s) Performed November 28, 2017. EGD Allergy Information Coded Allergies: Nut Tree (Verified Allergy, Unknown, THROAT SWELLING, 11/20/17) Penicillins (Verified Allergy, Unknown, THROAT SWELLING, 11/20/17) Discharge Date / Findings November 28, 2017. Eosinophilic esophagitis s/p dilation with Savary dilator to 45f Hiatal hernia Medication Instructions OK to resume all medications today as prescribed Reported Home Medications Medications Dose Route/Sig Max Daily Dose Days Date Category Protonix (Pantoprazole Sodium) 40 Mg Tab 40 Mg PO BID 11/20/17 Reported Calcium (Oyster Shell) 500 Mg Tab Unknown Dose PO BID 11/04/17 Reported Victoza (Liraglutide) 18 Mg/3 Ml Inj 1.2 Mg SQ QPM 07/24/17 Reported Lexapro (Escitalopram Oxalate) 10 Mg Tab 10 Mg PO QAM 07/24/17 Reported Hydrochlorothiazide 12.5 Mg Tab 1 Tab PO QAM 07/24/17 Reported Diovan (Valsartan) 160 Mg Tab 160 Mg PO QAM 07/24/17 Reported Provider Instructions Activity Restrictions - No exercising or heavy lifting for 24 hours. - Do not drink alcohol the day of the procedure. - Do not drive a car or operate machinery until the day after the procedure. - Do not make any important decisions or sign important papers in 24 hours after the procedure. Following Day: - Return to full activity which may include returning to work/school. Diet Start your diet with liquids and light foods (jello, soup, juice, toast). Then eat your usual diet if not nauseated. Treatment For Common After Affects For mild abdominal pain, bloating, or excessive gas: - Rest - Eat lightly - Lie on right side Follow-Up Information Follow-up with DR. TRISTAN as scheduled Anesthesia Information What You Should Know You have had a procedure that required some medicine to reduce anxiety and discomfort. This treatment is called moderate sedation. After receiving the treatment, you may be sleepy, but you will be able to breathe on your own. The effects of the treatment may last for several hours. Follow these instructions along with Activity/Diet recommendations noted above: * Do NOT do anything where dizziness or clumsiness would be dangerous. * Rest quietly at home today, then you can be up and about tomorrow. * Have a responsible person stay with you the rest of today. * You may have had an I.V. today. If so, you may take the dressing off later today. Recommendations Call your doctor if: * Trouble breathing * Continuous vomiting for more than 24 hours * Temperature above 101 degrees * Severe abdominal pain or bloating * Pain not relieved by pain medicine ordered * There is increased drainage or redness from any incision * A large amount of rectal bleeding greater than 2-3 tablespoons. (If you had a polyp/s removed or have hemorrhoids, a small amount of blood - from the rectum is to be expected.) * You have any unanswered questions or concerns. IN THE EVENT OF A SERIOUS EMERGENCY, GO TO THE NEAREST EMERGENCY ROOM Your discharge instructions were prepared by provider Cedric Marcano. Patient Instructions Signature Page Kaylynn Juarez Patient (or Guardian) Signature/Date: I have read and understand the instructions given to me by my caregivers. Caregiver/RN/Doctor Signature/Date: The above-named patient and/or guardian has received patient instructions on this date. + Original Patient Signature Page (only) stays with chart. Please make copy for patient.
--- NOTE | 2017-11-28 13:22 | GI REPORT ---
Patient Name: Kaylynn Juarez Procedure Date: 11/28/2017 12:42 PM Date of : 1970 Admit Type: Outpatient Age: 47 Gender: Female Attending MD: Cedric Marcano DO Procedure: Upper GI endoscopy Providers: Cedric Marcano DO Referring MD: Adriano Napier Indications: Follow-up of eosinophilic esophagitis Medicines: Monitored Anesthesia Care Complications: No immediate complications. Estimated Blood Loss: Estimated blood loss: none. Procedure: Pre-Anesthesia Assessment: - Prior to the procedure, a History and Physical was performed, and patient medications and allergies were reviewed. The patient's tolerance of previous anesthesia was also reviewed. The risks and benefits of the procedure and the sedation options and risks were discussed with the patient. All questions were answered, and informed consent was obtained. Prior Anticoagulants: The patient has taken no previous anticoagulant or antiplatelet agents. ASA Grade Assessment: II - A patient with mild systemic disease. After reviewing the risks and benefits, the patient was deemed in satisfactory condition to undergo the procedure. After obtaining informed consent, the endoscope was passed under direct vision. Throughout the procedure, the patient's blood pressure, pulse, and oxygen saturations were monitored continuously. The scope was introduced through the mouth, and advanced to the second part of duodenum. The upper GI endoscopy was accomplished without difficulty. The patient tolerated the procedure well. Findings: Mucosal changes were found in the entire esophagus. Esophageal findings were graded using the Eosinophilic Esophagitis Endoscopic Reference Score (EoE-EREFS) as: Edema Grade 1 Present (decreased clarity or absence of vascular markings), Rings Grade 2 Moderate (distinct rings that do not occlude passage of diagnostic 8-10 mm endoscope), Exudates Grade 0 None (no white lesions seen), Furrows Grade 1 Present (vertical lines with or without visible depth) and Stricture present. A guidewire was placed and the scope was withdrawn. Dilation was performed with a Savary dilator with mild resistance at 45 Fr. A small hiatal hernia was present. The examined duodenum was normal. Impression: - Esophageal mucosal changes consistent with eosinophilic esophagitis. Dilated. - Small hiatal hernia. - Normal examined duodenum. - No specimens collected. Recommendation: - Resume previous diet. - Continue present medications. - Repeat upper endoscopy PRN for retreatment. - Return to primary care physician as previously scheduled. Cedric Marcano, DO 11/28/2017 1:22:07 PM This report has been signed electronically. Note Initiated On: 11/28/2017 12:42 PM Number of Addenda: 0 I attest to the content of the Intraoperative Record and orders documented therein, exceptions below {[id number]}
--- NOTE | 2017-11-28 13:22 | Anesthesiology Progress Note ---
Anesthesia Post Op Note Date & Time November 28, 2017 at 13:22 Vital Signs Pain Intensity: 0 Vital Signs Past 12 Hours Date Time Temp Pulse Resp B/P (MAP) Pulse Ox O2 Delivery O2 Flow Rate FiO2 11/28/17 13:05 73 16 143/97 (112) 97 Room Air 11/28/17 12:15 36.6 73 20 152/114 (127) 97 Room Air Notes Mental Status: alert / awake / arousable, participated in evaluation Pt Amnestic to Procedure: Yes Nausea / Vomiting: adequately controlled Pain: adequately controlled Airway Patency, RR, SpO2: stable & adequate BP & HR: stable & adequate Hydration State: stable & adequate Anesthetic Complications: no major complications apparent
[2017-11-28 13:46] VITALS: BP 162/109; PULSE 69; O2SAT 96
== END | disposition home or self-care (01) ==
LOC: C.GI 11:44
PROVIDERS: ATTEND Internal Medicine
DX: K20.0 Eosinophilic esophagitis (principal); Z88.0 Allergy status to penicillin; J45.909 Unspecified asthma, uncomplicated; K21.9 Gastro-esophageal reflux disease without esophagitis; F41.9 Anxiety disorder, unspecified; E66.9 Obesity, unspecified; K44.9 Diaphragmatic hernia without obstruction or gangrene